=== PATIENT | male | born 1955 | race Caucasian/White ===

== ENCOUNTER 2021-03-31 07:56 | Outpatient (CLI) | payer BC, SELFPAY ==
--- NOTE | ~2021-03-31 | NM_ITS ---
EXAMINATION: NM sandhya stress w perfusion DATE: 03/31/2021 10:34 INDICATION: Atherosclerotic heart disease of [place] coronary arteries TECHNIQUE: Rest images were obtained following intravenous administration of 10.2 mCi Tc99m tetrofosm in (Myoview). The patient was infused intravenously with Lexiscan (Regadenoson). Then, 30.24 mCi Tc99 m tetrofosmin (Myoview) was administered intravenously, and stress images were obtained in supine pos ition. Repeat stress images were obtained in the prone position. Data was reconstructed into short ax is and horizontal and vertical long axis SPECT images. Gated SPECT images were also obtained. COMPARISON: None. FINDINGS: There is no definite reversible or fixed perfusion abnormality to suggest ischemia or infar ction. There is normal left ventricular chamber size, wall motion and ejection fraction. Left ventri cular ejection fraction measures 59%. IMPRESSION: 1. Normal myocardial perfusion at rest and during stress. 2. Left ventricular ejection fraction measuring 59%. Reviewed, dictated and finalized at location A.
--- NOTE | 2021-03-31 08:05 | EST_ITS ---
Patient Info Name: Steven Rayo Age: 65 years : 1955 Gender: Male Ht: 72 in Wt: 218 lbs BSA: 2.26 m2 HR: 67 bpm BP: 129 / 72 mmHg Heart Rhythm: Sinus Rhythm Exam Date: 03/31/2021 9:02 AM Exam Location: [facility] Stress Patient Status: Outpatient Admit Date: 03/31/2021 Staff Ordering Physician: Juan Diego Aly PA-C Attending Provider: Juan Diego Aly PA-C Exercise Technologist: Cornelia Austin CT Exercise Physician: Lakhwinder Marin DO Exam Type: CA stress sandhya w NM Study Info Indications I25.10 - Atherosclerotic heart disease of [place] coronary artery without angina pectoris A regadenoson stress test was performed. Summary 1. 1. Negative lexiscan stress test for ischemic ST changes by ECG criteria. 2. 2. Stable hemodynamics throughout the test. 3. 3. Nuclear scan to follow and will be reported separately. Please correlate with it. 4. 4. Patient informed of the above results. Protocol: Lexiscan Stress ECG Details Stage: REST Duration (min): 1 min : 4 sec HR (bpm): 70 SBP (mmHg): 129 DBP (mmHg): 72 Stage: REST Duration (min): 5 min : 25 sec HR (bpm): 79 SBP (mmHg): 129 DBP (mmHg): 72 Stage: STAGE 1 Duration (min): 1 min : 0 sec HR (bpm): 90 SBP (mmHg): 153 DBP (mmHg): 70 Stage: RECOVERY Duration (min): 1 min : 0 sec HR (bpm): 81 SBP (mmHg): 153 DBP (mmHg): 70 Stage: RECOVERY Duration (min): 2 min : 0 sec HR (bpm): 78 SBP (mmHg): 135 DBP (mmHg): 72 Stage: RECOVERY Duration (min): 2 min : 3 sec HR (bpm): 78 SBP (mmHg): 135 DBP (mmHg): 72 Rest HR: 79 bpm Peak HR: 94 bpm Rest Sys BP: 129 mmHg Peak Sys BP: 153 mmHg Max Pred HR: 156 bpm % Max Pred HR: 60 % Target HR: 133 bpm Max RPP: 14,382 bpm*mmHg Termination Reason: Completed protocol Cardiac Symptoms: Shortness of breath Total Time: 1 min : 0 sec Rest Villegas BP: 72 mmHg Peak Villegas BP: 70 mmHg Total Dose: 0.4 mg Resting ECG Sinus rhythm, IRBBB. Stress ECG No ST changes. Arrhythmias None. Report Signatures
== END 2021-03-31 07:57 | disposition home or self-care (01) ==
LOC: ANHCARD 07:58
PROVIDERS: PCP Family Medicine; Visit Provider Physician Assistant
DX: I25.118 Atherosclerotic heart disease of native coronary artery with other forms of angina pectoris (principal)
CPT/HCPCS: 78452; 93017; A9502; J2785

== ENCOUNTER 2021-10-06 13:03 | Emergency (ER) | payer BC, SELFPAY ==
--- NOTE | ~2021-10-06 | CT_ITS ---
EXAMINATION: CT abdomen pelvis w con DATE: 10/06/2021 14:58 INDICATION: Right lower quadrant abdominal pain. Abdominal distention. Diarrhea. TECHNIQUE: Computed tomography (CT) of the abdomen and pelvis was performed with 100 CC Omnipaque 350 intravenous contrast. Automated exposure control and iterative reconstruction technique were employe d. Exam dose: 811.77 mGy-cm total exam DLP. COMPARISON: None. FINDINGS: No infiltrate or consolidation at the lung bases. Normal heart size. No pericardial or pleu ral effusion. Small sliding hiatal hernia. Diffuse hepatic steatosis. 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 The gallbladder is present. No gallbladder wall thickening or pericholecystic fluid or fat stranding. No bile duct or pancreatic duct dilatation or pancreatic calcification. No urinary tract calculus or hydroureteronephrosis. Normal caliber of the abdominal aorta. No abdominal aortic aneurysm. No intraperitoneal or retroperit de la torre or pelvic mass lesion or adenopathy or ascites. The prostate gland, seminal vesicles and urinary bladder are unremarkable. Small fat-containing left inguinal hernia. There is dilatation and there are numerous air-fluid levels of the mid to distal small bowel which me asures up to approximately 3.4 cm maximal diameter. The terminal ileum is of normal caliber, without bowel wall thickening. No transition zone is noted. The colon is unremarkable. Included skeletal structures are unremarkable. IMPRESSION: Mid to distal small bowel dilatation and air-fluid levels, with decompression of the ter adrienne ileum. Consider adynamic ileus, enteritis, less likely small bowel obstruction Small sliding hiatal hernia Hepatic steatosis 6 mm left renal cyst Small fat-containing left inguinal hernia Reviewed, dictated and finalized at Location A. Reviewed, dictated and finalized at location A. IMPRESSION: Mid to distal small bowel dilatation and air-fluid levels, with de compression of the terminal ileum. Consider adynamic ileus, enteritis, less lik rik small bowel obstruction Small sliding hiatal hernia Hepatic steatosis 6 mm left renal cyst Small fat-containing left inguinal hernia
[2021-10-06 13:05] VITALS: BP 142/73; PULSE 69; RESP 18; TEMP 36.2; O2SAT 98
[2021-10-06 13:31] LABS: Basophils Absolute Auto 0.1 K/mm3 (0.0-0.1); Basophils Percent Auto 1.2 % (0.2-1.2); Eosinophils Absolute Auto 0.2 K/mm3 (0-0.3); Eosinophils Percent Auto 4.1 % (0-4.4); Hematocrit 46.8 % (42.0-52.0); Hemoglobin 15.6 g/dL (14.0-18.0); Immature Granulocyte Absolute 0.02 K/mm3 (0.00-0.031); Immature Granulocyte Percent A 0.4 % (0-0.5); Lymphocytes Absolute Auto 1.38 K/mm3 (0.9-3.2); Lymphocytes Percent Auto 27.2 % (18.3-44.2); Mean Corpuscular HGB Conc 33.3 g/dl (32-36); Mean Corpuscular Hemoglobin 29.1 pg (26-34); Mean Corpuscular Volume 87.2 fl (80-100); Mean Platelet Volume 8.8 fl (7.4-10.4); Monocytes Absolute Auto 0.7 K/mm3 (0.1-0.6); Monocytes Percent Auto 14.2 % (2.6-8.5); Neutrophils Absolute Auto 2.7 K/mm3 (1.3-6.7); Neutrophils Percent Auto 52.9 % (45.5-73.1); Platelet Count Result 181 k/mm3 (150-375); Red Blood Count 5.37 M/mm3 (4.6-6.20); Red Cell Distribution Width 13.2 % (11.5-14.5); White Blood Count 5.1 K/mm3 (4.5-10.0)
[2021-10-06 13:43] LABS: Alanine Aminotransferase 50 U/L (4-50); Albumin Level 3.8 g/dL (3.5-5.1); Alkaline Phosphatase 65 U/L (38-126); Anion Gap 6 mmol/L (8-16); Aspartate Amino Transferase 37 U/L (17-59); Bilirubin,Total 0.3 mg/dL (0.2-1.3); Blood Urea Nitrogen 19 mg/dL (9-20); Calcium 8.4 mg/dL (8.4-10.2); Carbon Dioxide 25 mmol/L (22-30); Chloride 108 mmol/L (98-107); Estimated CRCL calculation 99 ml/min; Estimated Glomerular Filt Rate > 60; Glucose 125 mg/dL (65-110); Lipase 235 U/L (23-300); Potassium 4.3 mmol/L (3.4-5.0); Sodium 139 mmol/L (137-145)
[2021-10-06 14:06] LABS: Anisocytosis 1+ (NORMAL); Band Neutrophils Percent 5 % (0-6); Eosinophils Percent Manual 4 % (0-4); Lymphocytes Absolute Manual 1.53 K/mm3 (1.1-4.5); Monocytes Absolute Manual 0.45 K/mm3 (0.1-0.90); Monocytes Percent Manual 9 % (3-9); Neutrophils Percent Manual 52 % (46-73); Platelet Estimate Adequate (Adequate); Total Cells Counted 100
[2021-10-06 14:42] LABS: Add Urine Microscopic? YES; Appearance Urine Clear (Clear); Bilirubin Urine Negative (Negative); Blood Urine Negative (Negative); Color Urine Yellow (Yellow); Glucose Urine UA 3+ mg/dL (Negative); Ketones Urine Negative (Negative); Leukocyte Esterase Ur Negative LEU/UL (Negative); Nitrate Urine Negative (Negative); Protein Urine Negative (Negative); RBC Urine 0-2 /hpf (0-2); Urobilinogen Urine Negative mg/dL (<2.0); WBC Urine 0-3 /hpf
[2021-10-06 15:08] LABS: Specific Grav Ur 1.031 (1.001-1.035)
[2021-10-06 16:14] VITALS: BP 140/86; PULSE 75; RESP 15; O2SAT 98
[2021-10-06] MEDS: SIMETHICONE 125 MG CHEW TAB PO (16:57)
[2021-10-06 17:37] VITALS: BP 142/74; PULSE 96; RESP 18; O2SAT 97
--- NOTE | 2021-10-06 18:01 | ED.ABDPAIN ---
HPI - Abdominal Pain General Chief Complaint: Abdominal Pain Stated Complaint: abd pain, diarrhea Time Seen by Provider: 10/06/21 13:18 History of Present Illness HPI narrative: Patient is a 66-year-old male who presents ER with abdominal bloating. Ongoing for 2 days. Feels like he needs to pass gas or belch and feel better. He has had a bowel movement today that the small. No fevers or chills or sweats. Reports he had diarrhea preceding this. No history of abdominal surgery. Related Data Allergies Allergy/AdvReac Type Severity Reaction Status Date / Time No Known Allergies Allergy Verified 10/06/21 13:55 Review of Systems Review of Systems: All systems reviewed & are unremarkable except as noted in HPI and below Constitutional: Constitutional: Denies chills, Denies fever(s) and Denies weakness ENT: Denies nasal congestion and Denies sore throat Cardiovascular: Cardiovascular: Denies chest pain, Denies rapid heart rate and Denies radiating jaw, neck or arm pain Respiratory: Respiratory: Denies cough, Denies dyspnea and Denies wheezing Gastrointestinal: Gastrointestinal: Denies abdominal pain, Reports bloating, Denies constipation and Reports diarrhea Genitourinary: Genitourinary: Denies dysuria and Denies urinary frequency PMFSH Past Medical History Medical History (Updated 10/06/21 @ 22:08 by Hector Carbajal MD) Atherosclerotic heart disease of [place] coronary artery with other forms of angina pectoris Essential (primary) hypertension Mixed hyperlipidemia Type 2 diabetes mellitus with hyperglycemia, without long-term current use of insulin Surgical History Surgical History (Updated 10/06/21 @ 22:08 by Hector Carbajal MD) No pertinent past surgical history Family History Family History Father Malignant neoplasm of prostate Other Family history of malignant neoplasm of breast in first degree relative Social History Social History Alcohol intake: current Exam Narrative: GENERAL: Well-appearing, well-nourished, and in no acute distress. HEAD: Normocephalic, atraumatic. NECK: Supple. CHEST: Clear to auscultation. No respiratory distress. HEART: Regular rate and rhythm. Normal peripheral pulses. ABDOMEN: Soft, nontender, mildly distended, normal active bowel sounds. EXTREMITIES: Normal range of motion. No edema. SKIN: Warm, dry, no rash. NEURO: Alert and oriented x3. PSYCH: Normal mood and affect. Course Course Emergency Course: Patient has had bowel movements in the ER. Still feels distended. Discussed treatment with simethicone and continued fluid hydration. Suspect ileus from his enteritis. Patient is however able has a stool and I am encouraged that she will be passing gas soon. He has follow-up with his PCP in 2 days. Vital Signs Vital signs: Vital Signs Temperature 97.2 F L 10/06/21 13:05 Pulse Rate 69 10/06/21 13:05 Respiratory Rate 18 10/06/21 13:05 Blood Pressure 142/73 H 10/06/21 13:05 Pulse Oximetry 98 10/06/21 13:05 Temperature 97.2 F L 10/06/21 13:05 Pulse Rate 96 10/06/21 17:37 Respiratory Rate 18 10/06/21 17:37 Blood Pressure 142/74 H 10/06/21 17:37 Pulse Oximetry 97 10/06/21 17:37 MDM - Abdominal Pain Lab Data Result diagrams: 10/06/21 13:24 10/06/21 13:24 Labs: Lab Results 10/06/21 10/06/21 10/06/21 Range/Units 13:24 13:24 14:28 WBC 5.1 (4.5-10.0) K/mm3 RBC 5.37 (4.6-6.20) M/mm3 Hgb 15.6 (14.0-18.0) g/dL Hct 46.8 (42.0-52.0) % MCV 87.2 (80-100) fl MCH 29.1 (26-34) pg MCHC 33.3 (32-36) g/dl RDW 13.2 (11.5-14.5) % Plt Count 181 (150-375) k/mm3 MPV 8.8 (7.4-10.4) fl Immature Gran % (Auto) 0.4 (0-0.5) % Neut % (Auto) 52.9 (45.5-73.1) % Lymph % (Auto) 27.2 (18.3-44.2) % [place] % (Auto) 14.2 H (2.6-8.5) % Eos %
== END 2021-10-06 18:20 | disposition home or self-care (01) ==
PROVIDERS: Emergency Medicine; Emergency Provider Emergency Medicine; PCP Family Medicine
DX: R14.0 Abdominal distension (gaseous) (principal); R10.9 Unspecified abdominal pain; I25.10 Atherosclerotic heart disease of native coronary artery without angina pectoris; I10 Essential (primary) hypertension; E78.2 Mixed hyperlipidemia; E11.9 Type 2 diabetes mellitus without complications; K44.9 Diaphragmatic hernia without obstruction or gangrene; K76.0 Fatty (change of) liver, not elsewhere classified; K40.90 Unilateral inguinal hernia, without obstruction or gangrene, not specified as recurrent; Z79.84 Long term (current) use of oral hypoglycemic drugs
CPT/HCPCS: 36415; 74177; 80053; 81001; 83690; 85025; 99284; A9270; Q9967

== ENCOUNTER 2023-03-31 09:35 | Outpatient (CLI) | payer BC, SELFPAY ==
--- NOTE | ~2023-03-31 | NM_ITS ---
EXAMINATION: NM sandhya stress w perfusion DATE: 03/31/2023 11:50 INDICATION: Atherosclerotic heart disease of [place] coronary arteries TECHNIQUE: Rest images were obtained following intravenous administration of 10.2 mCi Tc99m tetrofosm in (Myoview). The patient was infused intravenously with Lexiscan (Regadenoson). Then, 30.24 mCi Tc99 m tetrofosmin (Myoview) was administered intravenously, and stress images were obtained. Data was rec onstructed into short axis and horizontal and vertical long axis SPECT images. Gated SPECT images wer e also obtained. COMPARISON: None. FINDINGS: There is no definite reversible or fixed perfusion abnormality to suggest ischemia or infar ction. There is normal left ventricular chamber size, wall motion and ejection fraction. Left ventr icular ejection fraction measures 67%. IMPRESSION: 1. Normal myocardial perfusion at rest and during stress. 2. Left ventricular ejection fraction measuring 67%. Reviewed, dictated and finalized at location A.
--- NOTE | 2023-03-31 10:00 | EST_ITS ---
Patient Info Name: Steven Rayo Age: 67 years : 1955 Gender: Male Ht: 72 in Wt: 212 lbs BSA: 2.23 m2 HR: 67 bpm BP: 110 / 69 mmHg Exam Date: 03/31/2023 10:35 AM Exam Location: [facility] Stress Patient Status: Outpatient Admit Date: 03/31/2023 Staff Ordering Physician: Mario Alberto Whitfield MD Attending Provider: Exercise Technologist: Cornelia Austin CT Exercise Physician: Lakhwinder Marin DO Exam Type: CA stress sandhya w NM Study Info Indications I25.10 - Atherosclerotic heart disease of [place] coronary artery without angina pectoris A regadenoson stress test was performed. Summary 1. 1. Negative lexiscan stress test for ischemic ST changes by ECG criteria. 2. 2. Stable hemodynamics throughout the test. 3. 3. Nuclear scan to follow and will be reported separately. Please correlate with it. 4. 4. Patient informed of the above results. Protocol: Lexiscan Stress ECG Details Stage: REST Duration (min): 2 min : 48 sec HR (bpm): 71 SBP (mmHg): 110 DBP (mmHg): 69 Stage: REST Duration (min): 22 min : 13 sec HR (bpm): 65 SBP (mmHg): 110 DBP (mmHg): 69 Stage: STAGE 1 Duration (min): 1 min : 0 sec HR (bpm): 96 SBP (mmHg): 99 DBP (mmHg): 75 Stage: RECOVERY Duration (min): 1 min : 0 sec HR (bpm): 90 SBP (mmHg): 99 DBP (mmHg): 75 Stage: RECOVERY Duration (min): 2 min : 0 sec HR (bpm): 84 SBP (mmHg): 99 DBP (mmHg): 75 Stage: RECOVERY Duration (min): 2 min : 50 sec HR (bpm): 85 SBP (mmHg): 168 DBP (mmHg): 79 Rest HR: 65 bpm Peak HR: 96 bpm Rest Sys BP: 110 mmHg Peak Sys BP: 168 mmHg Max Pred HR: 154 bpm % Max Pred HR: 62 % Target HR: 131 bpm Max RPP: 16,128 bpm*mmHg Termination Reason: Reached target heart rate or workload Cardiac Symptoms: Shortness of breath Total Time: 1 min : 0 sec Rest Villegas BP: 69 mmHg Peak Villegas BP: 79 mmHg Total Dose: 0.4 mg Resting ECG Sinus rhythm, IRBBB. Stress ECG No ST changes. Arrhythmias None. Report Signatures
== END 2023-03-31 09:36 | disposition home or self-care (01) ==
PROVIDERS: PCP Emergency Medicine; Visit Provider Emergency Medicine
DX: I25.118 Atherosclerotic heart disease of native coronary artery with other forms of angina pectoris (principal); E11.65 Type 2 diabetes mellitus with hyperglycemia
CPT/HCPCS: 78452; 93017; A9502; J2785

== ENCOUNTER 2025-01-17 07:59 | Outpatient (CLI) | payer BC, SELFPAY ==
--- NOTE | ~2025-01-17 | NM_ITS ---
EXAMINATION: NM sandhya stress w perfusion DATE: 01/17/2025 15:37 CDT INDICATION: Atherosclerotic heart disease. TECHNIQUE: Rest images were obtained following intravenous administration of 11 mCi Tc99m tetrofosmin (Myoview). The patient was infused intravenously with Lexiscan (regadenoson). Then, 34.5 mCi Tc99m t etrofosmin (Myoview) was administered intravenously, and stress images were obtained. Data was recons tructed into short axis and horizontal and vertical long axis SPECT images. Gated SPECT images were a lso obtained. COMPARISON: None. FINDINGS: There is no definite reversible or fixed perfusion abnormality to suggest ischemia or infar ction. There is no segmental wall motion abnormality. Left ventricular ejection fraction measures 6 7%. IMPRESSION: 1. No definite ischemia or infarct. 2. Normal left ventricular ejection fraction measuring 67%. Reviewed, dictated and finalized at location A.
--- OUTSIDE RECORDS SUMMARY | 2025-01-17 08:06 | XMS_ITS | Clinical Summary ---
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
--- NOTE | 2025-01-17 08:33 | EST_ITS ---
Patient Info Name: Steven Rayo Age: 69 years : 1955 Gender: Male Ht: 72 in Wt: 202 lbs BSA: 2.17 m2 HR: 76 bpm BP: 108 / 71 mmHg Exam Date: 01/17/2025 8:33 AM Patient Status: O Admit Date: 01/17/2025 Exam Type: CA stress sandhya w NM A regadenoson stress test was performed. Staff Referring Physician: Juvenal Gates MD Attending Provider: Juvenal Gates MD Exercise Technologist: Paris Jones Exercise Physician: Lakhwinder Marin DO Summary 1. 1. Negative lexiscan stress test for ischemic ST changes by ECG criteria. 2. 2. Stable hemodynamics throughout the test. 3. 3. Nuclear scan to follow and will be reported separately. Please correlate with it. 4. 4. Patient informed of the above results. Protocol: Lexiscan Stress ECG Details Stage: REST Duration (min): 0 min : 29 sec HR (bpm): 73 SBP (mmHg): --- DBP (mmHg): --- Stage: REST Duration (min): 4 min : 54 sec HR (bpm): 74 SBP (mmHg): 108 DBP (mmHg): 71 Stage: STAGE 1 Duration (min): 0 min : 59 sec HR (bpm): --- SBP (mmHg): 114 DBP (mmHg): 74 Stage: RECOVERY Duration (min): 1 min : 0 sec HR (bpm): 92 SBP (mmHg): 114 DBP (mmHg): 74 Stage: RECOVERY Duration (min): 2 min : 0 sec HR (bpm): 82 SBP (mmHg): 114 DBP (mmHg): 74 Stage: RECOVERY Duration (min): 3 min : 0 sec HR (bpm): 81 SBP (mmHg): 109 DBP (mmHg): 84 Stage: RECOVERY Duration (min): 3 min : 7 sec HR (bpm): 81 SBP (mmHg): 109 DBP (mmHg): 84 Rest HR: 74 bpm Peak HR: 97 bpm Rest Sys BP: 108 mmHg Peak Sys BP: 114 mmHg Max Pred HR: 152 bpm % Max Pred HR: 64 % Target HR: 129 bpm Max RPP: 11,058 bpm*mmHg Termination Reason: Completed protocol Cardiac Symptoms: None Total Time: 1 min : 0 sec Rest Villegas BP: 71 mmHg Peak Villegas BP: 74 mmHg Total Dose: 0.4 mg Resting ECG Sinus rhythm. Stress ECG No ST changes. Arrhythmias None. Report Signatures
== END 2025-01-17 08:00 | disposition home or self-care (01) ==
PROVIDERS: PCP Emergency Medicine; Visit Provider Emergency Medicine
DX: I25.118 Atherosclerotic heart disease of native coronary artery with other forms of angina pectoris (principal)
CPT/HCPCS: 78452; 93017; A9502; J2785

== ENCOUNTER 2025-02-28 15:08 | Outpatient (CLI) | payer BC, SELFPAY ==
--- NOTE | ~2025-02-28 | XR_ITS ---
Examination: XR foot RT 2V Clinical History: M79.671 - Pain in right foot x 8 weeks, swelling to heel Comparison: None Technique: 2 views right foot Findings/impression: 1. No fracture or other acute abnormality identified right foot, given 2 view series. 2. Small calcaneal spur at plantar fascia insertion site. Reviewed, dictated and finalized at location R.
== END 2025-02-28 15:09 | disposition home or self-care (01) ==
PROVIDERS: PCP Emergency Medicine; Visit Provider Emergency Medicine
DX: M77.31 Calcaneal spur, right foot (principal)
CPT/HCPCS: 73620